=== PATIENT | male | born 1995 | race Caucasian/White ===

== ENCOUNTER 2018-03-11 04:20 | Day surgery (SDC) | payer BC ==
[2018-03-11] MEDS ORDERED: cefTRIAXone 2 GM in Sodium Chloride 0.9% 100 ML IV ONE (04:27)
[2018-03-11] MEDS ORDERED: metroNIDAZOLE/Normal Saline 500 MG in Premix Bag 1 BAG IV ONE (04:27)
[2018-03-11] MEDS ORDERED: Lactated Ringers 1,000 ML ONE (04:32)
[2018-03-11] MEDS ORDERED: Bupivacaine 0.5%/EPINEPHrine 1:200,000 50 ML MDV ONE (04:58)
[2018-03-11] MEDS ORDERED: Lidocaine 1% with EPINEPHrine 1:100,000 20 ML MDV ONE (04:58)
--- NOTE | 2018-03-11 05:07 | PCM.PREANE ---
Preanesthetic Assessment - Procedure Proposed Procedure: lap appy - Anesthesia/Transfusion/Family Hx Anesthesia History: Prior Anesthesia Without Reaction Family History of Anesthesia Reaction: No Transfusion History: No Prior Transfusion(s) - Review of Systems General: No Symptoms Pulmonary: No Symptoms Cardiovascular: No Symptoms Gastrointestinal: Abdominal Pain Neurological: No Symptoms Other: Reports: None - Physical Assessment NPO Status Date: 03/10/18 NPO Status Time: 21:00 O2 Sat by Pulse Oximetry: 97 Respiratory Rate: 18 Vital Signs: Last Vital Signs Temp 97.9 F 03/11/18 04:27 Pulse 78 03/11/18 04:27 Resp 18 03/11/18 04:27 BP 131/83 03/11/18 04:27 Pulse Ox 97 03/11/18 04:27 Height: 5 ft 8 in Weight: 90.718 kg ASA Class: 2E Mental Status: Alert & Oriented x3 Airway Class: Mallampati = 1 Dentition: Reports: Normal Dentition Thyro-Mental Finger Breadths: 3 Mouth Opening Finger Breadths: 3 ROM/Head Extension: Full Lungs: Clear to Auscultation, Normal Respiratory Effort Cardiovascular: Regular Rate, Regular Rhythm - Allergies Allergies/Adverse Reactions: Allergies Allergy/AdvReac Type Severity Reaction Status Date / Time No Known Allergies Allergy Verified 03/11/18 04:23 - Blood Blood Available: No - Acknowledgements Anesthesia Type Planned: General Anesthesia Pt an Appropriate Candidate for the Planned Anesthesia: Yes Alternatives and Risks of Anesthesia Discussed w Pt/Guardian: Yes Pt/Guardian Understands and Agrees with Anesthesia Plan: Yes PreAnesthesia Questionnaire HEENT History: Reports: None Cardiovascular History: Reports: None Respiratory History: Reports: None Gastrointestinal History: Reports: GERD (occasional) - Past Surgical History Female Surgical History: Reports: Breast Reduction Musculoskeletal Surgical History: Reports: Other (See Below) Other Musculoskeletal Surgeries/Procedures:: Partial shoulder tear - History Comment History Comment: antifungal med for home meds - SUBSTANCE USE Smoking Status *Q: Current Every Day Smoker Tobacco Use Within Last Twelve Months: Snuff/Dip Second Hand Smoke Exposure: No Days Per Week of Alcohol Use: 1 Number of Drinks Per Day: 6 Total Drinks Per Week: 6 Recreational Drug Use History: No - HOME MEDS Home Medications: Home Meds . [No Known Home Meds] 03/11/18 [History] - CURRENT (IN HOUSE) MEDS Current Meds: Current Medications Ceftriaxone Sodium 2 gm/ (Sodium Chloride) 100 mls @ 100 mls/hr IV ONETIME ONE Stop: 03/11/18 05:26 Last Admin: 03/11/18 04:37 Dose: 100 mls/hr Metronidazole 500 mg/ Premix 100 mls @ 100 mls/hr IV ONETIME ONE Stop: 03/11/18 05:26 Last Admin: 03/11/18 04:38 Dose: 100 mls/hr Discontinued Medications Lactated Ringer's (Ringers, Lactated) Confirm Administered Dose 1,000 mls @ as directed .ROUTE .STK-MED ONE Stop: 03/11/18 04:33
[2018-03-11] MEDS ORDERED: Lactated Ringers 1,000 ML IV SCH (05:30)
--- NOTE | 2018-03-11 05:35 | PCM.HP ---
H&P History of Present Illness - General Date of Service: 03/11/18 Admit Problem/Dx: Admission Diagnosis/Problem Admission Diagnosis/Problem Acute appendicitis acute appendicitis Source of Information: Patient, Old Records, Provider History Limitations: Reports: No Limitations - History of Present Illness Initial Comments - Free Text/Narative: Sanjeev is a 22y/o gentleman who presents to the ED with one day history of abdominal pain. He reports the pain was generalized and "achy," before localizing to the RLQ. He was feeling well prior to this episode. He had emesis while at home. He denies current nausea. He denies any stool changes, diarrhea or constipation, hematochezia or melena. He denies any fever. Sanjeev was seen and evaluated in [place]. He underwent laboratory examination which revealed WBC >15. He also had a CT scan of his abdomen and pelvis which showed a dilated, fluid-filled appendix measuring 11 mm in diameter. His potassium was 2.9. He received potassium chloride before he was transported by ambulance to our facility. Right Lower Abdomen Pain Score (Numeric/FACES): 7 - Related Data Allergies/Adverse Reactions: Allergies Allergy/AdvReac Type Severity Reaction Status Date / Time No Known Allergies Allergy Verified 03/11/18 04:23 Home Medications: Home Meds . [No Known Home Meds] 03/11/18 [History] Past Medical History HEENT History: Reports: None Cardiovascular History: Reports: None Respiratory History: Reports: None Gastrointestinal History: Reports: GERD (occasional) - Past Surgical History Female Surgical History: Reports: Breast Reduction Musculoskeletal Surgical History: Reports: Other (See Below) Other Musculoskeletal Surgeries/Procedures:: Partial shoulder tear - History Comment History Comment: antifungal med for home meds Social & Family History - Tobacco Use Smoking Status *Q: Current Every Day Smoker Years of Tobacco use: 1 Packs/Tins Daily: 1 Second Hand Smoke Exposure: No - Alcohol Use Days Per Week of Alcohol Use: 1 Number of Drinks Per Day: 6 Total Drinks Per Week: 6 - Recreational Drug Use Recreational Drug Use: No H&P Review of Systems - Review of Systems: Review Of Systems: See Below General: Reports: Malaise HEENT: Reports: No Symptoms Pulmonary: Reports: No Symptoms Cardiovascular: Reports: No Symptoms Gastrointestinal: Reports: Abdominal Pain, Other ( obstipation). Denies: Constipation, Diarrhea Genitourinary: Reports: No Symptoms Musculoskeletal: Reports: Shoulder Pain Skin: Reports: No Symptoms Neurological: Reports: No Symptoms Hematologic/Lymphatic: Reports: No Symptoms Immunologic: Reports: No Symptoms Exam - Exam Exam: See Below - Vital Signs Vital Signs: Last Vital Signs Temp 36.6 C 03/11/18 04:27 Pulse 78 03/11/18 04:27 Resp 18 03/11/18 05:19 BP 131/83 03/11/18 04:27 Pulse Ox 97 03/11/18 05:19 Weight: 90.718 kg - Exam General: Alert, Oriented HEENT: Conjunctiva Clear, EOMI Neck: Supple Lungs: Clear to Auscultation, Normal Respiratory Effort Cardiovascular: Regular Rate, Regular Rhythm GI/Abdominal Exam: Soft, No Distention, Guarding, Tender (in the RLQ). No: Rebound Extremities: No Pedal Edema Peripheral Pulses: 2+: Dorsalis Pedis (L), Dorsalis Pedis (R) Skin: Warm, Dry, Intact Neurological: Cranial Nerves Intact Neuro Extensive - Mental Status: Alert, Oriented x3, Normal Mood/Affect Psychiatric: Normal Mood *Q Meaningful Use (ADM) - VTE Risk Assess *Q Each Risk Factor Represents 1 Point: Minor Surgery Planned Total Score 1 Point Risk Factors: 1 Problem List Initiated/Reviewed/Updated: Yes Orders Last 24hrs: Active Orders 24 hr Category Date Time Status Patient Status [ADT] Routine ADT 03/11/18 04:50 Active POTASSIUM,K [CHEM] Stat Lab 03/11/18 05:15 Received Lactated Ringers [Ringers, Lactated] 1,000 ml Med 03/11/18 05:30 Active IV ASDIRECTED Schedule Procedure [COMM] Stat Oth 03/11/18 04:50 Ordered Medication Orders Lactated Ringer's (Ringers, Lactated) 1,000 mls @ 50 mls/hr IV ASDIRECTED SULLY Last Admin: 03/11/18 05:28 Dose: 50 mls/hr Assessment/Plan Comment:: 22-year-old gentleman with acute appendicitis. - Plan for laparoscopic appendectomy. I discussed the procedure with the patient including the risks of bleeding, infection and damage to surrounding structures. He understood and wished to proceed. His written consent was obtained - IV antibiotics, ceftriaxone 2 g IV 1 and metronidazole 500 mg IV 1 - Nothing by mouth - IV fluid resuscitation - We will recheck his potassium level given the very low level noted at the outside hospital - Will evaluate for admission versus observation based on intraoperative findings Charlotte Keane MD General Surgery
[2018-03-11] MEDS ORDERED: Ondansetron 4 MG/2 ML SDV ONE (05:43)
[2018-03-11] MEDS ORDERED: Lidocaine 1% 4 ML ONE (05:43)
[2018-03-11] MEDS ORDERED: Midazolam 1 MG/ML 2 ML SDV ONE (05:43)
[2018-03-11] MEDS ORDERED: Propofol 200 MG/20 ML SDV ONE (05:43)
[2018-03-11] MEDS ORDERED: fentaNYL 250 MCG/5 ML SDV ONE (05:43)
[2018-03-11] MEDS ORDERED: Rocuronium 50 MG/5 ML Vial ONE (05:43)
[2018-03-11] MEDS ORDERED: HYDROmorphone 0.5 MG/0.5 ML Syringe IVPUSH PRN (05:57)
[2018-03-11] MEDS ORDERED: fentaNYL 100 MCG/2 ML SDV IVPUSH PRN (05:57)
[2018-03-11] MEDS ORDERED: Meperidine PF 50 MG/ML Syringe IVPUSH PRN (05:57)
[2018-03-11] MEDS ORDERED: Ondansetron 4 MG/2 ML SDV IVPUSH PRN (05:57)
[2018-03-11] MEDS ORDERED: Neostigmine Methylsulfate 1 MG/ML 5 ML Syringe ONE (06:21)
[2018-03-11] MEDS ORDERED: Ketorolac 30 MG/ML SDV ONE (06:42)
--- NOTE | 2018-03-11 07:09 | PCM.OPNOTE ---
- General Post-Op/Procedure Note Date of Surgery/Procedure: 03/11/18 Operative Procedure(s): Laparoscopic appendectomy Findings: An injected and hyperemic appendix with a small amount of murky fluid in the abdomen Pre Op Diagnosis: Acute appendicitis Post-Op Diagnosis: Same Anesthesia Technique: General ET Tube Primary Surgeon: Charlotte Keane Secondary Surgeon: Reji Chamberlain Pathology: appenix and mesoappendix Fluid Replacement, Intraop: 800 Output, Urine Amount: 0 EBL in mLs: 5 Drain/Tube Comments:: none Complications: None apparent Condition: Good
--- NOTE | 2018-03-11 07:13 | PCM.POSTAN ---
POST ANESTHESIA ASSESSMENT - MENTAL STATUS Mental Status: Alert, Somnolent - VITAL SIGNS Pulse Rate: 86 SaO2: 97 Resp Rate: 20 Blood Pressure: 141/62 Temperature: 98 F - RESPIRATORY Respiratory Status: Respiratory Rate WNL, Airway Patent, O2 Saturation Stable, Supplemental Oxygen - CARDIOVASCULAR CV Status: Pulse Rate WNL, Blood Pressure Stable - GASTROINTESTINAL GI Status: No Symptoms - PAIN Pain Score: 0 - POST OP HYDRATION Hydration Status: Adequate & Stable
--- NOTE | 2018-03-11 07:17 | PCM.PRNOTE ---
- Free Text/Narrative Note: Operative Report Date of surgery: March 11, 2018 Preoperative diagnosis: acute appendicitis. Postoperative diagnosis same Surgeon: Charlotte Keane MD Anesthesia: General Bottler: Reji Chamberlain CRNA Estimated blood loss: 5 mL IV fluids: 800 mL Urine output: 0 mL Drains and lines: None Indications for procedure: Sanjeev is a 22-year-old male who presented to the emergency department with a one-day history of abdominal pain that localized in the right lower quadrant. He underwent laboratory evaluation revealing WBC >[address] of the abdomen and pelvis which showed a dilated fluid-filled appendix measuring 11 mm. Disease investigations were done in outside facility and the patient was transferred to the emergency department here. On my exam, his abdominal findings were consistent with the diagnosis of appendicitis. He was offered a laparoscopic appendectomy. After discussion of the risks of infection , bleeding, damage to surrounding structures, the patient agreed and his written consent was obtained Description of procedure: The patient was taken back to the operating room and placed in supine position on the operating table. SCD boots were in place and functional prior to the start of the procedure. He was given IV antibiotics in the emergency department, additional IV antibiotics were not administered. A surgical timeout was performed. The patient had successful induction of general anesthesia and was intubated without difficulty. Pt was then prepped and draped in standard surgical fashion . A 15 mm incision was made in the infraumbilical skin and deepened down to level of the fascia which was then grasped and incised sharply. We entered the peritoneum and then placed stay sutures of 0 Vicryl on the fascial edges. A 12 mm Bailey port was then placed into the umbilicus and the balloon was inflated. The abdomen was insufflated to 15 mmHg a 5 mm camera was inserted. There was no evidence of any injury created from entry into the abdomen. A TAP block was then performed using 60 mL of 1% lidocaine with epinephrine mixed with 0.5% bupivacaine with epinephrine. We proceeded to place a 5 mm port under direct visualization in the suprapubic midline and an additional 5mm port in the left lower quadrant. The patient was then positioned in Trendelenburg with right side elevated and we proceeded to mobilize the appendix. The appendix was retrocecal. There was a small amount of murky fluid in the abdomen, which was suctioned. The appendix was then grasped and with blunt dissection was brought into the surgical field. The mesoappendix dissected from the appendix. The appendix was then taken with a tissue staple load. The mesoappendix was then taken with a vascular staple load The specimen was in place in the Endo Catch bag. We then inspected and suctioned up any blood in the area. There was no active bleeding at the end of this case. The pelvis was also suctioned to remove murky fluid The abdomen was then desufflated and the umbilical fascia closed with 0 Vicryl sutures and the stay sutures were tied, effectively closing the umbilical port site. The skin was then reapproximated at all port sites using a 4-0 Monocryl subcutaneous stitch and covered with Dermabond surgical glue. The patient tolerated the procedure well. He was extubated and transported to the PACU in stable condition. All sponge and needle counts were correct. I was present and scrubbed for the entirety of the procedure. Complications: None apparent. Disposition: Stable to PACU Charlotte Keane MD General Surgery
[2018-03-11] MEDS ORDERED: Enoxaparin 40 MG/0.4 ML Syringe SUBCUT ONE ×2 (07:20→10:00)
--- NOTE | 2018-03-11 07:26 | PCM48HPAN ---
Post Anesthesia Note - EVALUATION WITHIN 48HRS OF ANESTHETIC Vital Signs in Normal Range: Yes Patient Participated in Evaluation: Yes Respiratory Function Stable: Yes Airway Patent: Yes Cardiovascular Function Stable: Yes Hydration Status Stable: Yes Pain Control Satisfactory: Yes Nausea and Vomiting Control Satisfactory: Yes Mental Status Recovered: Yes Resp Rate: 16
[2018-03-11] MEDS ORDERED: Dextrose 5%-Lact Ringers w/KCl 1,000 ML IV SCH (07:30)
[2018-03-11] MEDS: Acetaminophen/HYDROcodone 325-5 MG Tab PO PRN ×2 (07:53→16:06)
[2018-03-11] MEDS ORDERED: Meperidine 50 MG/ML Vial IVPUSH PRN (11:16)
== END 2018-03-11 16:14 | disposition home or self-care (01) ==
LOC: JD.ED 04:20 → JD.SDS 04:50 → JD.MS 08:14 → JD.SDS 16:14
PROVIDERS: ATTEND Surgery
DX: K35.3 Acute appendicitis with localized peritonitis (principal); F17.290 Nicotine dependence, other tobacco product, uncomplicated
CPT/HCPCS: 36415; 44970; 84132; 96374; 99285; A9270; J0696; J1650; J1885; J2250; J2405; J2704; J2710; J3010; J3480; J3490; J7030; J7120; 00840; J2001